=== PATIENT | female | born 1980 | race Caucasian/White ===

== ENCOUNTER 2018-03-04 07:30 | Day surgery (SDC) | payer OTHER ==
[2018-03-04 08:08] LABS: HEMATOCRIT 37.3 % (36.0-47.0); HEMOGLOBIN 13.4 g/dl (12.0-15.5); MEAN CORPUSCULAR HEMOGLOBIN 30.1 pg (27.0-33.0); MEAN CORPUSCULAR HGB CONC 35.9 g/dl (32.0-36.5); MEAN CORPUSCULAR VOLUME 83.8 fl (80.0-96.0); PLATELET COUNT, AUTOMATED 165 10^3/uL (150-450); RED BLOOD COUNT 4.45 10^6/uL (4.00-5.40); WHITE BLOOD COUNT 5.3 10^3/uL (4.0-10.0)
[2018-03-04] MEDS ORDERED: MIDAZOLAM INJ 2 MG/2 ML VIAL (J2250) As Ordered (08:12)
[2018-03-04] MEDS ORDERED: LIDOCAINE 2% INJ 100 MG/5 ML SDV (FOR ANES.) As Ordered (08:12)
[2018-03-04] MEDS ORDERED: ROCURONIUM BROMIDE 50 MG/5 ML VIAL As Ordered (08:12)
[2018-03-04] MEDS ORDERED: PROPOFOL 200 MG/20 ML VIAL As Ordered (08:12)
[2018-03-04] MEDS ORDERED: fentaNYL 100 MCG/2 ML INJECTION (J3010) As Ordered (08:12)
[2018-03-04] MEDS: LR 1,000 ML IV (08:15)
[2018-03-04 08:23] LABS: CONTROL LINE HCG INT CTR LINE PRESENT; HCG, SERUM QUALITATIVE NEGATIVE (NEGATIVE)
[2018-03-04] MEDS ORDERED: DESFLURANE 240 ML INHALANT As Ordered (09:13)
[2018-03-04] MEDS ORDERED: ONDANSETRON 4MG/2ML VIAL (J2405) As Ordered (09:14)
[2018-03-04] MEDS ORDERED: KETOROLAC 60 MG/2 ML VIAL (J1885) As Ordered (09:14)
[2018-03-04] MEDS ORDERED: dexameTHASONE 4 MG/ML 1ML VIAL (J1100) As Ordered (09:14)
[2018-03-04] MEDS: LIDOCAINE 1% MDV 20ML VIAL As Ordered (09:34)
[2018-03-04] MEDS ORDERED: fentaNYL 100 MCG/2 ML INJECTION (J3010) IV (10:15)
[2018-03-04] MEDS ORDERED: LR 1,000 ML IV ×2 (10:15)
[2018-03-04] MEDS ORDERED: ONDANSETRON 4MG/2ML VIAL (J2405) IV (10:15)
[2018-03-04] MEDS: PERCOCET 5MG/325MG TAB PO (10:36)
== END 2018-03-04 13:15 | disposition home or self-care (01) ==
LOC: M SDC 07:30
DX: N39.3 Stress incontinence (female) (male) (principal); D25.0 Submucous leiomyoma of uterus; T88.59XD Other complications of anesthesia, subsequent encounter; Z88.5 Allergy status to narcotic agent
CPT/HCPCS: 58558